=== PATIENT | female | born 1945 | race Caucasian/White ===

== ENCOUNTER 2016-05-15 23:53 | Emergency (ER) | payer OTHER ==
[~2016-05-15] VITALS: Ht 167.6 cm; Wt 65.9 kg
[~2016-05-15 23:53] MED LIST: ASPIRIN325 MG PO; AUGMENTIN875 MG PO; BIOTIN 5000MCG PO; BIOTIN5 MG PO; CALCIO DEL MAR500 MG PO; CALCIUM; CALCIUM + VITA1 EACH PO; CITRACAL D + H1 EACH PO; CITRACAL PLUS1 EAC1 PO; COQ-10100 MG PO; DIFLUCAN150 MG PO; DILTIAZEM 24HR240 MG PO; ESTROVEN MAX1 TABLET PO; FISH OIL300 MG PO; FLAXSEED; FLONASE16 G1 BOTH NARES; GARLIC; KEFLEX500 MG PO; KLONOPIN0.5 M1 PO; KLONOPIN1 MG PO; LIPITOR40 MG PO; LOPID600 MG PO; MACROBID100 MG PO; MACRODANTIN100 MG PO; MECLIZINE HCL25 MG PO; METOPROLOL SUCC25 MG PO; MULTI-DAY VITA1 EACH PO; OMEPRAZOLE40 M1 PO; OXECTA5 MG PO; OXYCODONE HCL10 MG PO; PERCOCET 5/31 TABLET PO; PREMARIN VAGI42.5 GM VG; PREMARIN0.45 MG PO; PRILOSEC20 MG PO; PROBIOTIC1 EAC1 PO; RESTASIS 01 DROP/0.4; RESTASIS 01 DROP/0.4 BOTH EYES; SOTALOL80 MG PO; VERAMYST10 GM BOTH NARES; XARELTO10 MG PO; ZOFRAN4 MG PO
[2016-05-15 23:55] VITALS: BP 133/91
[2016-05-22] MEDS ORDERED: ASPIRIN81 M2 PO (14:18)
[2016-05-22] MEDS ORDERED: VITAMIN B-6100 MG PO (14:22)
[2016-05-22] MEDS ORDERED: VITAMIN D31000 UNI2 PO (14:23)
[2016-05-22] MEDS ORDERED: CALCIUM CITRAT1 EA18 PO (14:23)
[2016-05-22] MEDS ORDERED: ZANTAC75 M1 PO (14:24)
[2016-05-22] MEDS ORDERED: VITAMIN B-12500 MC5 SL (14:24)
== END 2016-05-16 02:12 | disposition home or self-care (01) ==
LOC: EXP 23:53 → EME 23:53 → EXP 05-16 02:12
DX: S93.401A Sprain of unspecified ligament of right ankle, initial encounter (principal); S93.601A Unspecified sprain of right foot, initial encounter; X50.1XXA Overexertion from prolonged static or awkward postures, initial encounter; Z79.891 Long term (current) use of opiate analgesic; Z79.82 Long term (current) use of aspirin
CPT/HCPCS: 73610; 73630; 99281; 99284

== ENCOUNTER → 2016-05-24 | Outpatient (CLI) | payer OTHER ==
[~2016-05-24] VITALS: Ht 170.2 cm; Wt 65.8 kg
[~2016-05-24] MED LIST changes: +ASPIRIN81 M2 PO; +CALCIUM CITRAT1 EA18 PO; +VITAMIN B-12500 MC5 SL; +VITAMIN B-6100 MG PO; +VITAMIN D31000 UNI2 PO; +ZANTAC75 M1 PO
== END | disposition home or self-care (01) ==
LOC: AMB 10:13
PROC: 0DBE8ZZ Excision of Large Intestine, Via Natural or Artificial Opening Endoscopic (ICD-10-PCS; principal; 2016-05-24)
DX: K62.5 Hemorrhage of anus and rectum (principal); R14.0 Abdominal distension (gaseous); D12.3 Benign neoplasm of transverse colon; K57.90 Diverticulosis of intestine, part unspecified, without perforation or abscess without bleeding; K64.8 Other hemorrhoids; Z80.0 Family history of malignant neoplasm of digestive organs; Z86.010 Personal history of colon polyps
CPT/HCPCS: 88305; J2250; J3010

== ENCOUNTER → 2016-07-05 | Outpatient (CLI) | payer OTHER ==
[~2016-07-05] VITALS: Ht 170.2 cm; Wt 64.4 kg
== END | disposition home or self-care (01) ==
LOC: AMB 08:30
DX: R10.13 Epigastric pain (principal); R14.0 Abdominal distension (gaseous); K25.9 Gastric ulcer, unspecified as acute or chronic, without hemorrhage or perforation; K29.80 Duodenitis without bleeding; R19.4 Change in bowel habit; K21.9 Gastro-esophageal reflux disease without esophagitis; N18.3 Chronic kidney disease, stage 3 (moderate); Z80.0 Family history of malignant neoplasm of digestive organs; Z82.49 Family history of ischemic heart disease and other diseases of the circulatory system; Z87.891 Personal history of nicotine dependence; Z79.82 Long term (current) use of aspirin; Z88.8 Allergy status to other drugs, medicaments and biological substances
CPT/HCPCS: 88305; 88342 TC

== ENCOUNTER → 2016-07-17 | Outpatient (CLI) | payer OTHER | END | disposition home or self-care (01) | LOC: RAD 08:19 | DX: K57.90 Diverticulosis of intestine, part unspecified, without perforation or abscess without bleeding (principal) | CPT/HCPCS: 74176 ==

== ENCOUNTER 2016-09-02 03:42 | Emergency (ER) | payer OTHER ==
[~2016-09-02] VITALS: Ht 167.6 cm; Wt 65.6 kg
[2016-09-02 06:42] VITALS: BP 147/101
== END 2016-09-02 06:43 | disposition left against medical advice (07) ==
LOC: EME 03:42
DX: M54.12 Radiculopathy, cervical region (principal); M25.512 Pain in left shoulder; G43.909 Migraine, unspecified, not intractable, without status migrainosus; Z88.6 Allergy status to analgesic agent; Z91.041 Radiographic dye allergy status
CPT/HCPCS: 99281; 99284

== ENCOUNTER 2016-10-08 06:32 | Emergency (ER) | payer OTHER ==
[~2016-10-08] VITALS: Ht 167.6 cm; Wt 70.8 kg
[2016-10-08 08:08] LABS: EOSINOPHIL (%) 0.5 % (0-5); HEMATOCRIT 36.5 % (36.0-46.0); IMMATURE GRANULOCYTE (%) 0.5 % (0.0-0.7); INSTRUMENT ABS NEUTROPHIL CT 7.5 K/uL; LYMPHOCYTE COUNT 0.4 K/uL (1.0-2.8); MCH 28.7 PG (29.0-34.0); MCHC 34.2 G/DL (30.0-36.0); MCV 83.7 FL (83-99); MEAN PLAT.VOLUME 9.8 uM^3 (9.5-12.4); MONOCYTE (%) 4.1 % (3-12); MONOCYTE COUNT 0.3 K/uL (0-0.8); NEUTROPHIL COUNT 7.5 K/uL (1.8-6.4); PLATELET COUNT 267 K/uL (156-360); RBC DIS.WIDTH-CV 12.7 % (11.8-14.6); RBC DIS.WIDTH-SD 38.5 % (39-53); RED BLOOD COUNT 4.36 M/uL (3.80-5.20); WHITE BLOOD COUNT 8.3 K/uL (4.1-10.2)
[2016-10-08 08:26] LABS: CHLORIDE 108 mEq/L (99-109); POTASSIUM 3.9 mEq/L (3.7-5.4); SODIUM 141 mEq/L (136-147)
[2016-10-08 08:27] LABS: GLUCOSE 89 mg/dL (70-99)
[2016-10-08 08:28] LABS: TROP-I INTERPRETATION NEGATIVE; TROPONIN-I < 0.01 ng/mL (0.0-0.30)
[2016-10-08 08:29] LABS: ANION GAP 12 MEQ/L (2-14)
[2016-10-08 08:31] LABS: GFR ESTIMATE (CALCULATED) 58 mL/min/
[2016-10-08 08:32] LABS: UREA NITROGEN (BUN) 18 mg/dL (9-23)
[2016-10-08] MEDS ORDERED: VITAMIN B 1 (09:31)
[2016-10-08 09:33] LABS: INTER. NORMALIZED RATIO 1.1; PROTHROMBIN TIME 10.8 (9.2-11.2); PTT 28.6 (25-32)
[2016-10-08] MEDS ORDERED: EPIPEN ADU0.3 MG/0.3 IM (09:34)
[2016-10-08] MEDS ORDERED: CRESTOR5 MG PO (09:34)
[2016-10-08] MEDS ORDERED: DICYCLOMINE HCL10 MG PO (09:35)
[2016-10-08 11:10] LABS: TROP-I INTERPRETATION NEGATIVE; TROPONIN-I < 0.01 ng/mL (0.0-0.30)
[2016-10-08 11:46] VITALS: BP 106/76
== END 2016-10-08 11:48 | disposition home or self-care (01) ==
LOC: EME → EDBD 06:32 → EME 06:32
PROVIDERS: Emergency Medicine
DX: R07.9 Chest pain, unspecified (principal); R00.2 Palpitations; I48.91 Unspecified atrial fibrillation; Z88.6 Allergy status to analgesic agent; Z88.5 Allergy status to narcotic agent; Z91.041 Radiographic dye allergy status; Z87.891 Personal history of nicotine dependence; Z90.49 Acquired absence of other specified parts of digestive tract
CPT/HCPCS: 71010; 80048; 84484; 85025; 85610; 85730; 87493; 93005; 99281; 99285

== ENCOUNTER 2017-02-18 07:56 | Day surgery (SDC) | payer OTHER ==
[~2017-02-18] VITALS: Ht 170.2 cm; Wt 69.5 kg
[~2017-02-18 07:56] MED LIST changes: +BENTYL10 MG PO; +CRESTOR5 MG PO; +CYMBALTA30 MG PO; +DICYCLOMINE HCL10 MG PO; +EPIPEN ADU0.3 MG/0.3 IM; +VITAMIN B 1
== END 2017-02-18 10:33 | disposition home or self-care (01) ==
LOC: PAIN 07:56 → SDC 09:00 → PAIN 10:33
DX: M50.13 Cervical disc disorder with radiculopathy, cervicothoracic region (principal); M47.22 Other spondylosis with radiculopathy, cervical region; G89.29 Other chronic pain; K21.9 Gastro-esophageal reflux disease without esophagitis; I48.91 Unspecified atrial fibrillation; Z79.82 Long term (current) use of aspirin; Z79.891 Long term (current) use of opiate analgesic; Z87.891 Personal history of nicotine dependence
CPT/HCPCS: J1100

== ENCOUNTER 2017-04-23 07:07 | Day surgery (SDC) | payer OTHER ==
[~2017-04-23] VITALS: Ht 170.2 cm; Wt 68.2 kg
[2017-04-23 08:25] VITALS: BP 121/73
[2017-04-23 14:35] VITALS: BP 170/78
[2017-04-23 15:35] VITALS: BP 154/73
== END 2017-04-23 15:35 | disposition home or self-care (01) ==
LOC: SDC 07:07
DX: M50.121 Cervical disc disorder at C4-C5 level with radiculopathy (principal); M48.02 Spinal stenosis, cervical region; G89.29 Other chronic pain; M40.202 Unspecified kyphosis, cervical region; M47.22 Other spondylosis with radiculopathy, cervical region; M79.7 Fibromyalgia; Z79.82 Long term (current) use of aspirin; Z87.891 Personal history of nicotine dependence
CPT/HCPCS: 72020; 76000; C1713; C1821; J1100; J1170; J3010; J3370; J7120; Q0175

== ENCOUNTER → 2017-05-22 | Outpatient (CLI) | payer OTHER | END | disposition home or self-care (01) | LOC: RAD 12:12 | DX: Z98.1 Arthrodesis status (principal) | CPT/HCPCS: 72020 ==

== ENCOUNTER → 2017-07-21 | Outpatient (CLI) | payer OTHER | END | disposition home or self-care (01) | LOC: RAD 07:54 | DX: M46.92 Unspecified inflammatory spondylopathy, cervical region (principal); Z98.1 Arthrodesis status | CPT/HCPCS: 72040 ==

== ENCOUNTER → 2017-08-26 | Outpatient (CLI) | payer OTHER | END | disposition home or self-care (01) | LOC: RAD 13:35 | DX: M50.30 Other cervical disc degeneration, unspecified cervical region (principal) | CPT/HCPCS: 72040 ==